=== PATIENT | female | born 1980 ===

== ENCOUNTER 2018-04-13 07:14 | Day surgery (SDC) | payer BC ==
[~2018-04-13 07:14] MED LIST: Buffered Lidocaine 0.9% SYRIN* 5 ML/SYR SYRINGE INTRADERM ONE
[2018-04-13 08:18] LABS: ABS Basophils 0 10^3/ul (0-0.2); ABS Eosinophils 0.2 10^3/ul (0-0.6); ABS Lymphocytes 1.1 10^3/ul (1.0-4.8); ABS Monocytes 0.4 10^3/ul (0-0.8); ABS Neutrophils 4.6 10^3/ul (1.5-7.7); ABS Nucleated RBC 0 10^3/ul; Eosinophil % 3.2 % (0-6); Hematocrit 34 % (35-47); Hemoglobin 11.8 g/dl (12.0-16.0); Lymphocyte % 17.1 % (25-47); Mean Corpuscular HGB Conc 35 g/dl (31-36); Mean Corpuscular Hemoglobin 31 pg (27-31); Mean Corpuscular Volume 87 fL (80-97); Mean Platelet Volume 8.7 um3 (7.4-10.4); Nucleated Red Blood Cells % 0; Platelet Count 143 10^3/ul (150-450); Red Blood Count 3.86 10^6/ul (4.0-5.4); Red Cell Distribution Width 14 % (10.5-15); White Blood Count 6.3 10^3/ul (3.5-10.8)
[2018-04-13] MEDS ORDERED: Famotidine IV* 10 MG/ML 2 ML (20 mg) ONE (08:42)
[2018-04-13] MEDS ORDERED: Midazolam* 1 MG/ML 2 ML VIAL (2 MG) ONE (08:42)
[2018-04-13] MEDS ORDERED: fentaNYL* 50 MCG/ML 2 ML VIAL (100 MCG VIAL) ONE (08:43)
[2018-04-13] MEDS ORDERED: PROCHLORPERAZINE INJ 5 MG/ML 2 ML VIAL IV PRN (09:25)
[2018-04-13] MEDS ORDERED: Acetaminophen TAB* 325 MG PO PRN (09:25)
[2018-04-13] MEDS ORDERED: Nalbuphine* 20 MG/ML 1 ML VIAL IV PRN (09:25)
[2018-04-13] MEDS ORDERED: HYDROcodone/ACETAMIN 5-325 MG* 1 TAB PO PRN (09:25)
[2018-04-13] MEDS ORDERED: Naloxone* 0.4 MG/ML 1 ML VIAL IV PRN (09:25)
[2018-04-13] MEDS ORDERED: DiMENhydriNATE IV* 50 MG/ML VIAL IV PUSH PRN (09:25)
[2018-04-13] MEDS ORDERED: fentaNYL* 50 MCG/ML 2 ML VIAL (100 MCG VIAL) IV PRN (09:25)
[2018-04-13] MEDS ORDERED: Ondansetron ODT TAB* 4 MG PO PRN (09:25)
[2018-04-13] MEDS ORDERED: Misoprostol TAB* 200 MCG ONE (09:26)
[2018-04-13] MEDS ORDERED: Dexamethasone IV* 4 MG/ML 1 ML (4 MG) ONE (09:54)
[2018-04-13] MEDS ORDERED: Propofol* 10 MG/ML 20 ML BTL IV PUSH ONE (09:54)
[2018-04-13] MEDS ORDERED: Ketorolac INJ* 30 MG/ML 1 ML VIAL ONE (09:54)
[2018-04-13] MEDS ORDERED: Lidocaine 1% INJ* 10 MG/ML 30 ML SDV ONE (10:02)
[2018-04-13] MEDS ORDERED: Lidocaine 2% PF * 5 ML VIAL ONE (10:03)
[2018-04-13 13:06] VITALS: BP 84/65
--- NOTE | 2018-04-14 09:22 | OP ---
DATE OF OPERATION: 04/13/18 - [facility] DATE OF : 80 SURGEON: Korin Calderón MD ANESTHESIA: Spinal with paracervical block, 2% lidocaine. PRE-OP DIAGNOSIS: Missed , 8 weeks intrauterine . POST-OP DIAGNOSIS: Missed , 8 weeks intrauterine . OPERATIVE PROCEDURE: Dilation, evacuation, and curettage. ESTIMATED BLOOD LOSS: 125 cc. URINE OUTPUT: 150 cc clear yellow urine. FLUIDS: 800 cc of crystalloid. FINDINGS: Reveal products of conception consistent with intrauterine . COMPLICATIONS: None apparent. DISPOSITION: Stable to recovery room. DESCRIPTION OF PROCEDURE: The patient was placed in dorsal lithotomy position. Legs were placed in candy cane stirrups. The perineum and vagina were prepped and draped in the sterile standard fashion. The patient was identified with universal protocol. A self-cath was inserted for drainage of clear yellow urine , 150 cc. Self-cath was removed. Sterile speculum inserted, cervix visualized, grasped on the anterior lip with a single-tooth tenaculum, dilated to #11 Hegar dilator. A 10- mm curved suction curette was placed for complete evacuation of intrauterine contents. A sharp curettage was performed confirming removal of intrauterine contents. Single-tooth tenaculum was removed. Sterile speculum removed. Cytotec 800 mcg was placed intravaginally. All sponge, needle, instrument, and blade counts were correct throughout the case. The patient tolerated the procedure well. Please note the patient's blood type is B positive. [id number]/[facility] #: [id number] MTDD
== END 2018-04-13 13:08 | disposition home or self-care (01) ==
LOC: OR 07:14
PROVIDERS: ATTEND Obstetrics & Gynecology
DX: O02.1 Missed abortion (principal); L30.9 Dermatitis, unspecified
CPT/HCPCS: 36415; 85025; 88305; A9270-GY; J1100; J1885; J2250; J2704; J3010